=== PATIENT | male | born 1995 | race Caucasian/White ===

== ENCOUNTER 2017-05-30 18:27 | Emergency (ER) | payer SELFPAY ==
[2017-05-30] MEDS ORDERED: Bacitracin/Neomycin/Polymyxin B Oint 0.9 GM U/D Packet TOP ONE (19:08)
[2017-05-30] MEDS ORDERED: Bacitracin/Neomycin/Polymyxin B Oint 0.9 GM U/D Packet ONE (19:10)
--- NOTE | 2017-05-30 19:27 | EDM.PDOC ---
ED HPI GENERAL MEDICAL PROBLEM - General Chief Complaint: General Stated Complaint: bilateral foot pain/ difficulty walking Time Seen by Provider: 05/30/17 19:00 Source of Information: Reports: Patient History Limitations: Reports: No Limitations - History of Present Illness INITIAL COMMENTS - FREE TEXT/NARRATIVE: Patient is a 21-year-old who states that about a month ago he bought a new pair of boots 2 weeks ago he noticed some blisters on the right fourth finger and the left third toe at this time he continue using the boots and today's him because the blisters broke and he had some discomfort. Onset: Gradual Duration: Week(s):, Getting Worse Location: Reports: Other (Right fourth toe left third toe blisters) Quality: Reports: Ache Severity: Mild Context: Reports: Activity Bilateral Feet Pain Score (Numeric/FACES): 8 - Related Data Allergies Allergy/AdvReac Type Severity Reaction Status Date / Time No Known Allergies Allergy Verified 05/30/17 18:29 Home Meds: Home Meds Acetaminophen [Tylenol Arthritis] 2 tab PO DAILY 05/30/17 [History] Past Medical History - Past Surgical History HEENT Surgical History: Reports: Oral Surgery Male Surgical History: Reports: Other (See Below) Other Male Surgeries/Procedures: Scrotal surgery for torsioned testicles. Other Musculoskeletal Surgeries/Procedures:: left hand second finger fx Social & Family History - Tobacco Use Smoking Status *Q: Current Some Day Smoker Years of Tobacco use: 7 Packs/Tins Daily: 1 - Caffeine Use Caffeine Use: Reports: Tea - Recreational Drug Use Recreational Drug Use: Yes Recreational Drug Type: Reports: Marijuana/Hashish Recreational Drug Use Frequency: Weekly ED ROS GENERAL - Review of Systems Review Of Systems: See Below Constitutional: Reports: No Symptoms HEENT: Reports: No Symptoms Respiratory: Reports: No Symptoms Cardiovascular: Reports: No Symptoms Endocrine: Reports: No Symptoms GI/Abdominal: Reports: No Symptoms : Reports: No Symptoms Musculoskeletal: Reports: No Symptoms, Foot Pain Skin: Reports: Burn(s) ([place] like blisters in the right fourth toe left third toe clean with normal saline and Neosporin Telfa and Megan applied) Neurological: Reports: No Symptoms Psychiatric: Reports: No Symptoms Hematologic/Lymphatic: Reports: No Symptoms Immunologic: Reports: No Symptoms ED EXAM, GENERAL - Physical Exam Exam: See Below Exam Limited By: No Limitations General Appearance: Alert, WD/WN, No Apparent Distress Ears: Normal External Exam, Normal Canal, Hearing Grossly Normal, Normal TMs Ear Exam: Bilateral Ear: Auricle Normal, Canal Normal, TM normal Nose: Normal Inspection, Normal Mucosa, No Blood Throat/Mouth: Normal Inspection, Normal Lips, Normal Teeth, Normal Gums, Normal Oropharynx, Normal Voice, No Airway Compromise Head: Atraumatic, Normocephalic Neck: Normal Inspection, Supple, Non-Tender, Full Range of Motion Respiratory/Chest: No Respiratory Distress, Lungs Clear, Normal Breath Sounds, No Accessory Muscle Use, Chest Non-Tender Cardiovascular: Normal Peripheral Pulses, Regular Rate, Rhythm, No Edema, No Gallop, No JVD, No Murmur, No Rub Peripheral Pulses: 2+: Posterior Tibial (L), Posterior Tibial (R), Dorsalis Pedis (L), Dorsalis Pedis (R) GI/Abdominal: Normal Bowel Sounds, Soft, Non-Tender, No Organomegaly, No Distention, No Abnormal Bruit, No Mass (Male) Exam: Deferred Rectal (Males) Exam: Deferred Back Exam: Normal Inspection, Full Range of Motion, NT Extremities: Other (Open blisters on right foot fourth toe and left foot third toe) Neurological: Alert, Oriented, CN II-XII Intact, Normal Cognition, Normal Gait, Normal Reflexes, No Motor/Sensory Deficits Psychiatric: Normal Affect, Normal Mood Skin Exam: Warm, Dry, Normal Color, Tattoo(s), Other ((Blisters as above) Lymphatic: No Adenopathy ED GENERAL MEDICAL PROCEDURES - Additional/Other Procedure(s) Other (Free Text) Procedure(s): At this time the blisters were cleaned with saline no signs of infection seen once the blisters were clean Neosporin and Telfa applied one-inch Megan was wrapped on the toes and was the secured Klin with paper tapethe one-inch Course - Vital Signs Last Recorded V/S: Last Vital Signs Temp 98.5 F 05/30/17 18:37 Pulse 98 05/30/17 18:37 Resp 20 05/30/17 18:37 BP 134/81 05/30/17 18:37 Pulse Ox 98 05/30/17 18:37 - Orders/Labs/Meds Orders: Active Orders 24 hr Category Date Time Status POC Glucose [Blood Glucose Check, Bedside] [RC] ONETIME Care 05/30/17 19:18 Active Labs: Laboratory Tests 05/30/17 Range/Units 19:16 POC Glucose 81 (65-110) mg/dl Meds: Medications Discontinued Medications Generic Name Dose Route Start Last Admin Trade Name Tari PRN Reason Stop Dose Admin Neomycin/Polymyxin/Bacitracin 2 each 05/30/17 19:08 05/30/17 19:10 Triple Antibiotic Oint TOP 05/30/17 19:09 2 each ONETIME ONE Administration Neomycin/Polymyxin/Bacitracin Confirm 05/30/17 19:10 05/30/17 19:18 Triple Antibiotic Oint Administered 05/30/17 19:11 Not Given Dose 2 each .ROUTE .STK-MED ONE Departure - Departure Time of Disposition: 19:34 Disposition: Home, Self-Care 01 Condition: Good Clinical Impression: Blisters of multiple sites - Discharge Information Instructions: Wound Care, Adult Referrals: PCP,None [Primary Care Provider] - Forms: ED Department Discharge Additional Instructions: Blisters are to be cleaned with saline Neosporin applied and Kerlix wrap and tape for security patient is not to wear his new boots until these heel and should air amount after showering and before applying new dressing patient is to return to clinic on Friday for evaluation of blisters at this time since it does not appear infected and his blood sugar was within normal limits I will not start him on antibiotics patient has good pedal and dorsalis pedal pulses does not smoke does use Bapper once in a while instructed not to smoke or use Baper's patient is to take Motrin 400 mg for pain every 6 hours or Tylenol 500 every 6 hours as needed - My Orders Last 24 Hours: My Active Orders 05/30/17 19:18 POC Glucose [Blood Glucose Check, Bedside] [RC] ONETIME - Assessment/Plan Last 24 Hours: My Active Orders 05/30/17 19:18 POC Glucose [Blood Glucose Check, Bedside] [RC] ONETIME
== END 2017-05-30 19:45 | disposition home or self-care (01) ==
LOC: LL.ED 18:27
DX: S90.425A Blister (nonthermal), left lesser toe(s), initial encounter (principal); S90.424A Blister (nonthermal), right lesser toe(s), initial encounter; F17.210 Nicotine dependence, cigarettes, uncomplicated; Z79.899 Other long term (current) drug therapy; X58.XXXA Exposure to other specified factors, initial encounter
CPT/HCPCS: 82962; 99283